=== PATIENT | female | born 1965 ===

== ENCOUNTER → 2025-03-04 15:58 | Outpatient (REF) | payer MEDICARE, SELFPAY | LOC: RCS 15:58 | PROVIDERS: ATTENDING PHYSICIAN Family Medicine | DX: I45.10 Unspecified right bundle-branch block (principal) | CPT/HCPCS: 93306 ==

== ENCOUNTER → 2025-03-05 16:09 | Outpatient (REF) | payer MEDICARE, SELFPAY | LOC: RAD 16:09 | PROVIDERS: ATTENDING PHYSICIAN Family Medicine | DX: E01.1 Iodine-deficiency related multinodular (endemic) goiter (principal) | CPT/HCPCS: 76536 ==

== ENCOUNTER → 2025-03-28 12:59 | Outpatient (REF) | payer MEDICARE, SELFPAY | LOC: WDC 12:59 | PROVIDERS: ATTENDING PHYSICIAN Family Medicine | DX: Z12.31 Encounter for screening mammogram for malignant neoplasm of breast (principal) | CPT/HCPCS: 77063; 77067 ==